=== PATIENT | female | born 1955 | race Caucasian/White ===

== ENCOUNTER 2017-07-30 15:35 | Emergency (ER) | payer OTHER ==
[~2017-07-30] VITALS: Ht 157.5 cm; Wt 68.0 kg
[2017-07-30] MEDS ORDERED: IOHEXOL 350 MG/ML 10 ML VIAL (for RAD DIAG) IVCONTRAST ONE (15:36)
[2017-07-30 15:38] VITALS: BP 118/53; PULSE 107; RESP 14; TEMP 99.7; O2SAT 97
--- NOTE | 2017-07-30 15:45 | PD ---
Physical Exam Time Seen by Provider: 15:43 Narrative 62-year-old female sent by Dr. Wilder for lower abdominal pain and no appetite 11 days. Reports vomiting. Denies fever, diarrhea. Patient seen in triage. Vital signs reviewed. Patient awaiting bed placement. Data Data Last Documented VS Vital Signs Date Time Temp Pulse Resp B/P (MAP) Pulse Ox O2 Delivery O2 Flow Rate FiO2 07/30/17 15:38 99.7 107 14 118/53 (74) 97 MDM Supervised Visit with COLT: Yojana Ryder Jul 30, 2017 15:45
[2017-07-30] MEDS ORDERED: SODIUM CHLOR 0.9% 1000 ML INJ 1,000 ML IV SCH (15:55)
[2017-07-30 15:57] VITALS: O2SAT 100
[2017-07-30] MEDS ORDERED: SODIUM CHLORIDE 0.9% FLUSH 10 ML FLUSH IV FLUSH PRN (16:00)
--- NOTE | 2017-07-30 16:08 | PD ---
HPI . Abdominal pain Chief Complaint: Abdominal Pain Time Seen by Provider: 15:55 Travel History International Travel<30 days: No Contact w/Intl Traveler<30days: No Traveled to known affect area: No History of Present Illness HPI Patient states that she was sent here by her doctor for evaluation of lower abdominal pain associated with poor appetite and vomiting. Onset of symptoms was 11 days ago. Symptoms have persisted. Pain is described as crampy and is rated 10/10. There have been no modifying factors. She denies urinary tract symptoms and she denies diarrhea. She reports a mass in her left lower abdominal wall which has been present for quite some time but which has gotten bigger since the onset of her symptoms 11 days ago. She states that this has never been imaged. However, oncology records indicate a CT of her abdomen and pelvis on 07/12/16. That CT showed thickening of the terminal ileum. The patient also reports some upper respiratory symptoms. She is complaining with some nasal congestion. This started at about the same time as the GI symptoms. PFSH Past Medical History Arthritis: No Asthma: No Autoimmune Disease: No Blood Disorders: No Heart Rhythm Problems: No Cancer: Yes (breast) Cardiovascular Problems: No High Cholesterol: No Chest Pain: No Congestive Heart Failure: No COPD: No Cerebrovascular Accident: No Diabetes: No Diminished Hearing: No GERD: No Glaucoma: No Genitourinary: No Headaches: Yes Hepatitis: No Hiatal Hernia: No Hypertension: No Kidney Stones: No Medical other: Yes Neurologic: No Psychiatric: No Respiratory: No Myocardial Infarction: No Radiation Therapy: No Renal Failure: No Seizures: No Sleep Apnea: No Thyroid Disease: No Ulcer: No ?: Not Past Surgical History Abdominal Surgery: No Cardiac Surgery: No Ear Surgery: No Endocrine Surgery: No Eye Surgery: No Genitourinary Surgery: No Gynecologic Surgery: Yes (HISTERECOMY, 2 C-SECTIONS, FIBROIDS) Hysterectomy: Yes Oral Surgery: No Pacemaker: No Thoracic Surgery: No Other Surgery: Yes (double masectomy) Social History Alcohol Use: No Tobacco Use: Yes (occ) Substance Use: No Allergies-Medications (Allergen,Severity, Reaction): Coded Allergies: No Known Allergies (Verified Allergy, Severe, 05/01/04) Reported Meds & Prescriptions Reported Meds & Active Scripts Active Protonix (Pantoprazole Sodium) 20 Mg Tab 20 Mg PO DAILY Zofran Odt (Ondansetron Odt) 4 Mg Tab 4 Mg SL Q8HR PRN Review of Systems Except as stated in HPI: all other systems reviewed are Neg General / Constitutional: Positive: Fever Gastrointestinal: Positive: Nausea, Vomiting, Abdominal Pain, No: Diarrhea Genitourinary: No: Urgency, Frequency, Dysuria, Decreased Urinary Output Physical Exam Narrative GENERAL: Patient is awake and alert and does not appear to be in any acute distress. SKIN: warm/dry. No rashes. HEAD: Normocephalic. Atraumatic. EYES: Pupils equal and round. No scleral icterus. No injection or drainage. ENT: No nasal bleeding or discharge. Mucous membranes pink and moist. NECK: Trachea midline. Full range of motion without pain.. CARDIOVASCULAR: Mild tachycardia at about 105. Heart sounds are normal. RESPIRATORY: No accessory muscle use. Clear to auscultation. Breath sounds equal bilaterally. GASTROINTESTINAL: Abdomen soft. Nontender. Bowel sounds present. Nondistended. She does have a palpable mass in the left lower quadrant. It is soft and is about 6 cm in diameter. MUSCULOSKELETAL: No obvious deformities. NEUROLOGICAL: Awake and alert. No obvious cranial nerve deficits. Motor grossly within normal limits. Normal speech. PSYCHIATRIC: Appropriate mood and affect; insight and judgment normal. Data Data Last Documented VS Vital Signs Date Time Temp Pulse Resp B/P (MAP) Pulse Ox O2 Delivery O2 Flow Rate FiO2 07/30/17 20:10 07/30/17 17:41 98.6 91 16 98 Room Air Orders Orders Complete Blood Count With Diff (07/30/17 15:55) Comprehensive Metabolic Panel (07/30/17 15:55) Urinalysis - C+S If Indicated (07/30/17 15:55) Ct Abd/Pel W Iv Contrast(Rout) (07/30/17 15:55) Iv Access Insert/Monitor (07/30/17 15:55) Ecg Monitoring (07/30/17 15:55) Oximetry (07/30/17 15:55) Sodium Chlor 0.9% 1000 Ml Inj (Ns 1000 M (07/30/17 15:55) Sodium Chloride 0.9% Flush (Ns Flush) (07/30/17 16:00) Sodium Chlor 0.9% 1000 Ml Inj (Ns 1000 M (07/30/17 17:00) Iohexol 350 Inj (Omnipaque 350 Inj) (07/30/17 15:36) Ondansetron Inj (Zofran Inj) (07/30/17 19:15) Ondansetron Inj (Zofran Inj) (07/30/17 19:10) Al-Mag Hy-Si 40-40-4 Mg/Ml Liq (Mag-Al P (07/30/17 20:00) Lidocaine 2% Viscous (Xylocaine 2% Visco (07/30/17 20:00) Labs Laboratory Tests Test 07/30/17 16:00 07/30/17 16:45 White Blood Count 9.7 TH/MM3 Red Blood Count 4.71 MIL/MM3 Hemoglobin 15.3 GM/DL Hematocrit 46.0 % Mean Corpuscular Volume 97.7 FL Mean Corpuscular Hemoglobin 32.6 PG Mean Corpuscular Hemoglobin Concent 33.4 % Red Cell Distribution Width 12.3 % Platelet Count 389 TH/MM3 Mean Platelet Volume 8.0 FL Neutrophils (%) (Auto) 79.0 % Lymphocytes (%) (Auto) 11.0 % Monocytes (%) (Auto) 9.5 % Eosinophils (%) (Auto) 0.1 % Basophils (%) (Auto) 0.4 % Neutrophils # (Auto) 7.7 TH/MM3 Lymphocytes # (Auto) 1.1 TH/MM3 Monocytes # (Auto) 0.9 TH/MM3 Eosinophils # (Auto) 0.0 TH/MM3 Basophils # (Auto) 0.0 TH/MM3 CBC Comment DIFF FINAL Differential Comment Blood Urea Nitrogen 16 MG/DL Creatinine 0.87 MG/DL Random Glucose 119 MG/DL Total Protein 7.4 GM/DL Albumin 3.7 GM/DL Calcium Level 9.5 MG/DL Alkaline Phosphatase 66 U/L Aspartate Amino Transf (AST/SGOT) 8 U/L Alanine Aminotransferase (ALT/SGPT) 14 U/L Total Bilirubin 0.5 MG/DL Sodium Level 138 MEQ/L Potassium Level 4.4 MEQ/L Chloride Level 102 MEQ/L Carbon Dioxide Level 29.6 MEQ/L Anion Gap 6 MEQ/L Estimat Glomerular Filtration Rate 66 ML/MIN Urine Color YELLOW Urine Turbidity HAZY Urine pH 5.5 Urine Specific [place] 1.037 Urine Protein 30 mg/dL Urine Glucose (UA) NEG mg/dL Urine Ketones 80 mg/dL Urine Occult Blood NEG Urine Nitrite NEG Urine Bilirubin NEG Urine Urobilinogen 4.0 MG/DL Urine Leukocyte Esterase TRACE Urine WBC 2 /hpf Urine Squamous Epithelial Cells 2 /hpf Urine Hyaline Casts 4 /lpf Urine Mucus MANY /lpf Microscopic Urinalysis Comment CULT NOT INDICATED MDM Medical Decision Making Medical Screen Exam Complete: Yes Emergency Medical Condition: Yes Medical Record Reviewed: Yes (she has a history of breast cancer and is status post bilateral mastectomy. She also has a history of Crohn's disease.) Differential Diagnosis Differential diagnosis of abdominal pain includes but is not limited to gastritis, pancreatitis, hepatitis, gastroenteritis, gallbladder disease, constipation, urinary retention, UTI, peptic ulcer disease, diverticulitis or appendicitis Narrative Course Patient presents for the evaluation of lower abdominal pain associated with vomiting and poor appetite. She does have a palpable abdominal wall mass in the left lower quadrant. CT of the abdomen and pelvis is pending because of the pain and vomiting. She'll be treated with IV fluids. Care was turned over to Dr. Pulido pending her workup. Scripts Pantoprazole (Protonix) 20 Mg Tab 20 MG PO DAILY for Reflux, #30 TAB 0 Refills Prov: Robert Pulido MD 07/30/17 Ondansetron Odt (Zofran Odt) 4 Mg Tab 4 MG SL Q8HR Y for Nausea/Vomiting, #10 TAB 0 Refills Prov: Robert Pulido MD 07/30/17 Christina Chand MD Jul 30, 2017 16:08
[2017-07-30 16:19] LABS: AUTOMATED NEUTROPHIL # 7.7 TH/MM3 (1.8-7.7); BASOPHIL % 0.4 % (0.0-2.0); EOSINOPHIL % 0.1 % (0.0-4.0); HEMO FLAGS DIFF FINAL; LYMPHOCYTE # 1.1 TH/MM3 (1.0-4.8); MEAN CELL VOLUME 97.7 FL (80.0-100.0); MEAN CORPUSCULAR HEMOGLOBIN 32.6 PG (27.0-34.0); MEAN CORPUSCULAR HGB CONC 33.4 % (32.0-36.0); MONO % 9.5 % (0.0-8.0); PLATELET COUNT 389 TH/MM3 (150-450); RED BLOOD COUNT 4.71 MIL/MM3 (4.00-5.30); RED CELL DISTRIBUTION WIDTH 12.3 % (11.6-17.2); WHITE BLOOD COUNT 9.7 TH/MM3 (4.0-11.0)
[2017-07-30 16:44] LABS: ANION GAP 6 MEQ/L (5-15); AST (GOT) 8 U/L (15-37); BICARBONATE 29.6 MEQ/L (21.0-32.0); BLOOD UREA NITROGEN 16 MG/DL (7-18); CHLORIDE 102 MEQ/L (98-107); GLOMERULAR FILTRATION RATE 66 ML/MIN (>89); POTASSIUM 4.4 MEQ/L (3.5-5.1); SODIUM (NA) 138 MEQ/L (136-145)
[2017-07-30 16:45] LABS: ALT (GPT) 14 U/L (10-53)
[2017-07-30 16:48] LABS: ALKALINE PHOSPHATASE 66 U/L (45-117); TOTAL BILIRUBIN ADULT 0.5 MG/DL (0.2-1.0)
[2017-07-30] MEDS ORDERED: SODIUM CHLOR 0.9% 1000 ML INJ 1,000 ML IV ONE (17:00)
[2017-07-30 17:36] LABS: BLOOD, URINE NEG (NEG); COMMENT (UR) CULT NOT INDICATED; CULTURE IF INDICATED CULT NOT INDICATED; GLUCOSE,URINE NEG (NEG); HYALINE CAST, URINE 4 /lpf (RARE); KETONE, URINE 80 mg/dL (NEG); MUCUS URINE MANY /lpf (OCC); NITRITE,URINE NEG (NEG); PH, URINE 5.5 (5.0-8.5); SQUAMOUS EPITHELIAL CELL URINE 2 /hpf (0-5); URINE COLOR YELLOW (YELLW/STRAW)
[2017-07-30 17:41] VITALS: BP 133/61; PULSE 91; RESP 16; TEMP 98.6; O2SAT 98
--- NOTE | 2017-07-30 17:46 | RADRPT ---
EXAM DATE/TIME: 07/30/2017 17:17 [facility] COMPARISON: No previous studies available for comparison. INDICATIONS : Abdomen pain for eleven days. IV CONTRAST: 97 cc Omnipaque 350 (iohexol) IV ORAL CONTRAST: No oral contrast ingested. RADIATION DOSE: 8.34 CTDIvol (mGy) MEDICAL HISTORY : Carcinoma, breast. SURGICAL HISTORY : Mastectomy, bilateral. Hysterectomy. ENCOUNTER: Initial ACUITY: 2 weeks PAIN SCALE: 3/10 LOCATION: Bilateral lower quadrant TECHNIQUE: Volumetric scanning of the abdomen and pelvis was performed. Using automated exposure control and ad justment of the mA and/or kV according to patient size, radiation dose was kept as low as reasonably achievable to obtain optimal diagnostic quality images. DICOM format image data is available electro nically for review and comparison. FINDINGS: LOWER LUNGS: The visualized lower lungs are clear. LIVER: Homogeneous density without lesion. There is no dilation of the biliary tree. No calcified gallston es. Gallbladder seen is a luminal structure without wall thickening SPLEEN: Normal size without lesion. PANCREAS: Within normal limits. KIDNEYS: Normal in size and shape. There is no mass, stone or hydronephrosis. ADRENAL GLANDS: Within normal limits. VASCULAR: There is no aortic aneurysm. BOWEL/MESENTERY: There is disproportionate distention with air and fluid of the small bowel to the terminal ileum wher e there is a relatively medium to long segment of narrowed terminal ileum yielding obstruction. I do not identify a definite evidence of a mass however there is bowel wall thickening of the distal ileum and proximal dilatation to that. Findings suggest intrinsic bowel disease such as Crohn's disease. ABDOMINAL WALL: Defect in the midline anterior pelvic wall with herniation of fat. Bowel does not protrude into this RETROPERITONEUM: There is no lymphadenopathy. BLADDER: No wall thickening or mass. REPRODUCTIVE: Surgical absence of the uterus. Small amount of free fluid in the cul-de-sac pelvis.. INGUINAL: There is no lymphadenopathy or hernia. MUSCULOSKELETAL: Bilateral spondylolysis at L5 with a grade 2 spondylolisthesis L5 on S1 and severe degenerative disc disease narrowing of 5 S1 disc space. CONCLUSION: Abnormal small bowel distal ileum terminal ileum appears somewhat narrowed in non-distended proximal to this there is a segment of distal ileum with circumferential bowel wall thickening and small bowel is dilated proximal consistent with small bowel obstruction which may be on an inflammatory bowel ba ses such as Crohn's disease. There is a small amount of free fluid in the pelvis. Midline defect anterior pelvic wall with herniation of fat. Bilateral spondylolysis L5 with grade 2 spondylolist hesis and degenerative disc disease L5-S1. Jhonny Sharp MD on July 30, 2017 at 17:37 Board Certified Radiologist. This report was verified electronically.
[2017-07-30] MEDS ORDERED: ONDANSETRON HCL 4 MG/2 ML VIAL ONE (19:10)
[2017-07-30] MEDS ORDERED: ONDANSETRON HCL 4 MG/2 ML VIAL IV PUSH ONE (19:15)
[2017-07-30] MEDS ORDERED: ZOFR4TAB3 SL (19:50)
[2017-07-30] MEDS ORDERED: PANT20 PO (19:50)
--- NOTE | 2017-07-30 19:51 | PD ---
Data Data Last Documented VS Vital Signs Date Time Temp Pulse Resp B/P (MAP) Pulse Ox O2 Delivery O2 Flow Rate FiO2 07/30/17 17:41 98.6 91 16 133/61 (85) 98 Room Air Orders Orders Complete Blood Count With Diff (07/30/17 15:55) Comprehensive Metabolic Panel (07/30/17 15:55) Urinalysis - C+S If Indicated (07/30/17 15:55) Ct Abd/Pel W Iv Contrast(Rout) (07/30/17 15:55) Iv Access Insert/Monitor (07/30/17 15:55) Ecg Monitoring (07/30/17 15:55) Oximetry (07/30/17 15:55) Sodium Chlor 0.9% 1000 Ml Inj (Ns 1000 M (07/30/17 15:55) Sodium Chloride 0.9% Flush (Ns Flush) (07/30/17 16:00) Sodium Chlor 0.9% 1000 Ml Inj (Ns 1000 M (07/30/17 17:00) Iohexol 350 Inj (Omnipaque 350 Inj) (07/30/17 15:36) Ondansetron Inj (Zofran Inj) (07/30/17 19:15) Ondansetron Inj (Zofran Inj) (07/30/17 19:10) Al-Mag Hy-Si 40-40-4 Mg/Ml Liq (Mag-Al P (07/30/17 20:00) Lidocaine 2% Viscous (Xylocaine 2% Visco (07/30/17 20:00) Labs Laboratory Tests Test 07/30/17 16:00 07/30/17 16:45 White Blood Count 9.7 TH/MM3 Red Blood Count 4.71 MIL/MM3 Hemoglobin 15.3 GM/DL Hematocrit 46.0 % Mean Corpuscular Volume 97.7 FL Mean Corpuscular Hemoglobin 32.6 PG Mean Corpuscular Hemoglobin Concent 33.4 % Red Cell Distribution Width 12.3 % Platelet Count 389 TH/MM3 Mean Platelet Volume 8.0 FL Neutrophils (%) (Auto) 79.0 % Lymphocytes (%) (Auto) 11.0 % Monocytes (%) (Auto) 9.5 % Eosinophils (%) (Auto) 0.1 % Basophils (%) (Auto) 0.4 % Neutrophils # (Auto) 7.7 TH/MM3 Lymphocytes # (Auto) 1.1 TH/MM3 Monocytes # (Auto) 0.9 TH/MM3 Eosinophils # (Auto) 0.0 TH/MM3 Basophils # (Auto) 0.0 TH/MM3 CBC Comment DIFF FINAL Differential Comment Blood Urea Nitrogen 16 MG/DL Creatinine 0.87 MG/DL Random Glucose 119 MG/DL Total Protein 7.4 GM/DL Albumin 3.7 GM/DL Calcium Level 9.5 MG/DL Alkaline Phosphatase 66 U/L Aspartate Amino Transf (AST/SGOT) 8 U/L Alanine Aminotransferase (ALT/SGPT) 14 U/L Total Bilirubin 0.5 MG/DL Sodium Level 138 MEQ/L Potassium Level 4.4 MEQ/L Chloride Level 102 MEQ/L Carbon Dioxide Level 29.6 MEQ/L Anion Gap 6 MEQ/L Estimat Glomerular Filtration Rate 66 ML/MIN Urine Color YELLOW Urine Turbidity HAZY Urine pH 5.5 Urine Specific [place] 1.037 Urine Protein 30 mg/dL Urine Glucose (UA) NEG mg/dL Urine Ketones 80 mg/dL Urine Occult Blood NEG Urine Nitrite NEG Urine Bilirubin NEG Urine Urobilinogen 4.0 MG/DL Urine Leukocyte Esterase TRACE Urine WBC 2 /hpf Urine Squamous Epithelial Cells 2 /hpf Urine Hyaline Casts 4 /lpf Urine Mucus MANY /lpf Microscopic Urinalysis Comment CULT NOT INDICATED MDM Medical Record Reviewed: Yes Supervised Visit with COLT: No Narrative Course CBC & BMP Diagram 07/30/17 16:00 Total Protein 7.4, Albumin 3.7, Calcium Level 9.5, Alkaline Phosphatase 66, Aspartate Amino Transf (AST/SGOT) 8 L, Alanine Aminotransferase (ALT/SGPT) 14, Total Bilirubin 0.5 UA: no UTI Last 24 hours Impressions Abdomen/Pelvis CT 07/30/17 6500 Signed Impressions: Service Date/Time: Sunday, July 30, 2017 17:17 - CONCLUSION: Abnormal small bowel distal ileum terminal ileum appears somewhat narrowed in non-distended proximal to this there is a segment of distal ileum with circumferential bowel wall thickening and small bowel is dilated proximal consistent with small bowel obstruction which may be on an inflammatory bowel bases such as Crohn's disease. There is a small amount of free fluid in the pelvis. Midline defect anterior pelvic wall with herniation of fat. Bilateral spondylolysis L5 with grade 2 spondylolisthesis and degenerative disc disease L5-S1. Jhonny Sharp MD Pt had similar CT findings in April 2016. Pt reports + BM daily, most recently this AM. She adds epigastric burning as a primary complaint, better with Pepto- Bismol. Pt agrees to follow up with [facility]. She has good insight. Return precautions discussed. Pt agreeable with plan. Diagnosis Primary Impression: Inflammatory bowel disease Additional Impressions: Gastritis Qualified Codes: K29.70 - Gastritis, unspecified, without bleeding Vomiting Qualified Codes: R11.10 - Vomiting, unspecified Referrals: Josh Fowler MD call for appointment [facility] call for appointment Additional Instruction: You have a choice when it comes to health care, and we are glad that you chose [facility]. Hopefully, we have met your expectations on today's visit. You are welcome to return to [facility] at any time, as we are committed to meeting the health care needs of our community. Med/Other Pt SpecificInfo: Prescription(s) given Scripts Pantoprazole (Protonix) 20 Mg Tab 20 MG PO DAILY for Reflux, #30 TAB 0 Refills Prov: Robert Pulido MD 07/30/17 Ondansetron Odt (Zofran Odt) 4 Mg Tab 4 MG SL Q8HR Y for Nausea/Vomiting, #10 TAB 0 Refills Prov: Robert Pulido MD 07/30/17 Disposition: 01 DISCHARGE HOME Condition: Stable Robert Pulido MD Jul 30, 2017 19:50
[2017-07-30] MEDS ORDERED: LIDOCAINE VISCOUS 2% SOLN 15 ML UDC PO ONE (20:00)
[2017-07-30] MEDS ORDERED: ALUMINUM/MAGNESIUM/SIMETH 30 ML CUP PO ONE (20:00)
== END 2017-07-30 20:15 | disposition home or self-care (01) ==
LOC: NEPD 15:35
DX: K29.70 Gastritis, unspecified, without bleeding (principal); R11.10 Vomiting, unspecified
CPT/HCPCS: 74177; 80053; 81001; 85025; 96361; 96374; 99285; J2405; J7030; Q9967